=== PATIENT | male | born 1965 | race Caucasian/White ===

== ENCOUNTER 2017-11-15 14:24 | Emergency (ER) | payer BC ==
[~2017-11-15] VITALS: Ht 175.3 cm; Wt 90.0 kg
[2017-11-15] MEDS: PLEASE ENTER HEIGHT AND WEIGHT MC SCH (14:38)
[2017-11-15] MEDS ORDERED: KETOROLAC 30 MG/1 ML ONE (14:39)
[2017-11-15] MEDS ORDERED: DIAZEPAM 5 MG TABLET ONE (14:39)
[2017-11-15] MEDS ORDERED: KETOROLAC 30 MG/1 ML IM ONE (15:00)
[2017-11-15] MEDS ORDERED: PLEASE ENTER ALLERGIES MC SCH (15:00)
[2017-11-15] MEDS ORDERED: DIAZEPAM 5 MG TABLET PO ONE (15:00)
[2017-11-15 15:43] VITALS: BP 118/68
== END 2017-11-15 15:45 | disposition home or self-care (01) ==
LOC: ED 15:39
DX: S39.012A Strain of muscle, fascia and tendon of lower back, initial encounter (principal); S90.01XA Contusion of right ankle, initial encounter; X50.1XXA Overexertion from prolonged static or awkward postures, initial encounter; Y93.89 Activity, other specified; Y92.830 Public park as the place of occurrence of the external cause; Y99.8 Other external cause status
CPT/HCPCS: 72110; 73610; 73630; 96372; 99284; J1885